=== PATIENT | female | born 1940 | race Caucasian/White ===

== ENCOUNTER → 2016-12-15 | Outpatient (CLI) | payer MEDICARE, OTHER ==
--- NOTE | 2016-12-16 18:06 | XCELERA REPORT ---
[address] [address] Transthoracic Echocardiogram Report Name: BARB MIRELES Age: 76 yrs Gender: Female : 1940 Patient Status: Outpatient Patient Location: Study Date: 12/15/2016 01:22 PM Height: 62 in Weight: 156 lb BSA: 1.7 m2 Procedure: A two-dimensional transthoracic echocardiogram with color flow and Doppler was performed. Study Quality: Fair. Reason For Study: CVA History: CVA. Ordering Physician: LUCY DECKER Performed By: Allyson Soares Interpretation Summary There is no obvious cardiac source of embolus noted on this transthoracic echocardiogram. Follow-up with a TRACE is suggested if cardiac source is still suspected. The left ventricle is normal in size. There is mild concentric left ventricular hypertrophy. LV EF is > than 60% Left ventricular systolic function is normal. The left ventricular wall motion is normal. There is no thrombus. The right ventricle is not well visualized secondary to technical limitations The left atrial size is normal. The interatrial septum is intact with no evidence for an atrial septal defect. There is no evidence of mitral valve prolapse. There is no mitral valve stenosis. There is a trace amount of mitral regurgitation There is no aortic valve stenosis There is no LVOT obstruction. No aortic regurgitation is present. There is Aortic Sclerosis without stenosis. There is no tricuspid stenosis. There is a mild amount of tricuspid regurgitation RVSP is 25 mm of Hg , with RA mean of 5. Right ventricular systolic pressure is normal. There is no pericardial effusion. There is no obvious cardiac source of embolus noted on this transthoracic echocardiogram. Follow-up with a TRACE is suggested if cardiac source is still suspected MMode/2D Measurements & Calculations RVDd: 3.0 cm LVIDd: 4.0 cm FS: 34.3 % Ao root diam: 3.4 cm IVSd: 1.2 cm LVIDs: 2.6 cm EDV(Teich): 70.2 ml LVPWd: 1.2 cm ESV(Teich): 25.4 ml Ao root area: 9.0 cm2 EF(Teich): 63.9 % LA dimension: 3.2 cm LVOT diam: 1.9 cm LVOT area: 2.7 cm2 Doppler Measurements & Calculations MV E max swati: MV P1/2t max swati: Ao V2 max: LV V1 max P.6 cm/sec 73.1 cm/sec 154.1 cm/sec 3.7 mmHg MV A max swati: MV P1/2t: 66.6 msec Ao max PG: LV V1 max: 105.1 cm/sec MVA(P1/2t): 3.3 cm2 9.5 mmHg 96.6 cm/sec MV E/A: 0.68 MV dec slope: LILIBETH(V,D): 1.7 cm2 321.3 cm/sec2 PA V2 max: TR max swati: 95.3 cm/sec 221.5 cm/sec PA max P.6 mmHgTR max P.6 mmHg Left Ventricle The left ventricle is normal in size. There is mild concentric left ventricular hypertrophy. LV EF is > than 60%. Left ventricular systolic function is normal. Doppler measurements suggest impaired left ventricular relaxation, which is associated with grade I/IV or mild diastolic dysfunction. The left ventricular wall motion is normal. There is no thrombus. There is no ventricular septal defect visualized. Right Ventricle The right ventricle is not well visualized secondary to technical limitations. Atria The right atrium is normal. The left atrial size is normal. The interatrial septum is intact with no evidence for an atrial septal defect. Mitral Valve There is mild mitral annular calcification. There is no evidence of mitral valve prolapse. There is no vegetation seen on the mitral valve. There is no mitral valve stenosis. There is a trace amount of mitral regurgitation. Aortic Valve There is no aortic valvular vegetation. There is no aortic valve stenosis. There is no LVOT obstruction. There is Aortic Sclerosis without stenosis. No aortic regurgitation is present. Tricuspid Valve There is no tricuspid stenosis. There is a mild amount of tricuspid regurgitation. RVSP is 25 mm of Hg , with RA mean of 5. Right ventricular systolic pressure is normal. Pulmonic Valve There is no pulmonic valvular stenosis. There is no pulmonic valvular regurgitation. Great Vessels The aortic root is normal size. Effusions There is no pericardial effusion. : LUCY DECKER > Ivon Almeida
--- NOTE | 2016-12-20 11:48 | CAROTID DOPPLER PRO FEE REPORT ---
CAROTID DUPLEX DOPPLER REPORT PATIENT NAME: BARB MIRELES ROOM#: DATE OF STUDY: 12/15/2017 DATE OF : 1940 REFERRING MD: LUCY DECKER M.D. ORDER NO: [id number] TECHNOLOGIST: Chuyita Soares INDICATION: CVA. STUDY: The color carotid duplex scan was performed with real time images and real time Doppler velocity measurements. Doppler velocity measurements were as follows: MEASUREMENT: RIGHT LEFT CCA PSV (prox/mid) 134 cm/sec 60 cm/sec CCA PSV (distal) 92 cm/sec 72 cm/sec CCA EDV (prox/mid) 21 cm/sec 14 cm/sec CCA EDV (distal) 25 cm/sec 18 cm/sec ICA PSV (proximal) 76 cm/sec 69 cm/sec ICA PSV (distal) 91 cm/sec 50 cm/sec ICA EDV (proximal) 22 cm/sec 17 cm/sec ICA EDV (distal) 30 cm/sec 21 cm/sec ECA 34 cm/sec 90 cm/sec ICA/CCA RATIO: 0.9 on the right and 0.9 on the left. Vertebrals are cephalad. Flow is cephalad. FINAL IMPRESSION: NORMAL CAROTID DOPPLER AND ANTEGRADE VERTEBRAL SIGNALS. INTERPRETING PHYSICIAN: LUCY DECKER M.D. /: [place] TT: 1145 ID: [id number] /: [id number] TD: 1402 JOB: [id number] cc:Monae BREWER M.D. >
== END ==
LOC: SP 12:43
PROVIDERS: ATTEND Specialist
DX: I65.29 Occlusion and stenosis of unspecified carotid artery (principal)
CPT/HCPCS: 93306; 93880